=== PATIENT | female | born 1970 | race Caucasian/White ===

== ENCOUNTER 2017-07-16 16:39 | Emergency (ER) | payer OTHER ==
[2017-07-16] MEDS ORDERED: Albuterol/Ipratropium NEB.SOL* Albuterol 2.5 MG/Ipratropium 0.5 MG 3 ML INH ONE ×2 (16:41→17:15)
--- NOTE | 2017-07-16 17:16 | UC ---
Aldo Kumar Nikita, scribed for Joan Rojas MD on 07/16/17 at 1702 . Respiratory Complaint HPI - HPI Summary HPI Summary: This patient is a 47 year old F presenting to [facility] with a chief complaint of difficulty breathing, wheezing and cough since 3-4 days ago. The CC is described as not feeling well and worsened since onset. Pt with cough without sputum. Pt denies fevers, but reports chills . Pt with a h/o asthma. Pt states uses an inhaler rarely, hasn't used with this illness. chest tightness with coughing, losing her voice (since 2 days ago), overheating, chills, dry heaving, light-headedness, fatigue, and diarrhea. Patient is bipolar and reports she had 3 manic episodes within the last 8 weeks because stopped her meds. Pt states called mental health today to schedule an appointment to restart. Patient denies N/V, fever, ear pain, sinus pain, melena , dysuria, and vaginal discharge/itching. Pt denies SI/HI. Pt states lives with BF who is supportive Patients medication reviewed this visit. - History of Current Complaint Chief Complaint: UCRespiratory Stated Complaint: COUGH, AND CHEST CONGESTION Time Seen by Provider: 07/16/17 16:51 Hx Obtained From: Patient Hx Last Menstrual Period: 2 WEEKS AGO Onset/Duration: Sudden Onset, Lasting Days, Still Present Severity Initially: Moderate Severity Currently: Moderate Pain Intensity: 7 Pain Scale Used: 0-10 Numeric Character: Cough: Productive, Sputum Description: - white Aggravating Factors: Nothing Alleviating Factors: Nothing Associated Signs And Symptoms: Positive: Chills - Patient reports a productive cough with white sputum (now dry cough), chest tightness, losing her voice ( since 2 days ago), overheating, chills, dry heaving, light-headedness, fatigue, and diarrhea. Patient is bipolar and reports she had 3 manic episodes within the last 8 weeks. Patient denies N/V, fever, ear pain, sinus pain, melena, dysuria, and vaginal discharge/itching. - Allergies/Home Medications Allergies/Adverse Reactions: Allergies Allergy/AdvReac Type Severity Reaction Status Date / Time Bupropion [From Wellbutrin] Allergy Unknown Verified 07/16/17 16:47 Reaction Details Home Medications: Home Medications Ferrous Sulfate TAB* 325 mg PO DAILY 07/16/17 [History Confirmed 07/16/17] Levothyroxine TAB* [Synthroid TAB*] 100 mcg PO DAILY 07/16/17 [History Confirmed 07/16/17] Omeprazole CAP* [Prilosec CAP* 20 MG] 20 mg PO DAILY 07/16/17 [History Confirmed 07/16/17] PMH/Surg Hx/FS Hx/Imm Hx Endocrine History: Diabetes - pre-DM, Thyroid Disease Cardiovascular History: Other Other Cardiovascular History: anemia Respiratory History: Asthma GI/ History: Gastroesophageal Reflux Psychological History: Bipolar Disorder - Surgical History Surgical History: Yes Surgery Procedure, Year, and Place: TUBAL LIGATION, 3 C SECTIONS - Family History Known Family History: Positive: Cardiac Disease, Hypertension, Diabetes - Social History Occupation: Unemployed Lives: With Family - BF Alcohol Use: None Substance Use Type: None Smoking Status (MU): Never Smoked Tobacco Review of Systems Constitutional: Chills, Fatigue, Other - not feeling well, overheating; denies fever ENT: Other - losing her voice (since 2 days ago); denies ear pain, sinus pain Respiratory: Cough - productive with white sputum (now dry cough), Other - difficulty breathing Cardiovascular: Chest Pain - tightness Gastrointestinal: Diarrhea, Other - dry heaving; denies N/V, melena Genitourinary: Other - denies dysuria, vaginal discharge/itching Neurological: Other - light-headedness Psychological: Other - "manic episode" All Other Systems Reviewed And Are Negative: Yes Physical Exam Triage Information Reviewed: Yes Appearance: Well-Appearing, Well-Nourished, Other: - audble wheeze, short sentences at triage - markedly improved following first neb and full exam Pt with laryngitis Vital Signs: Initial Vital Signs Temp 96.1 F 07/16/17 16:43 Pulse 88 07/16/17 16:43 Resp 20 07/16/17 16:43 BP 119/74 07/16/17 16:43 Pulse Ox 97 07/16/17 16:43 Vital Signs Reviewed: Yes Eye Exam: Normal Eyes: Positive: Conjunctiva Clear ENT Exam: Normal ENT: Positive: Normal ENT inspection, Hearing grossly normal, Pharynx normal Dental Exam: Normal Neck exam: Normal Neck: Positive: Supple, Nontender, No Lymphadenopathy Respiratory Exam: Normal Respiratory: Positive: Chest non-tender, Wheezing, Other: - increased RR and short sentences initially with markedly improved following neb Cardiovascular: Positive: RRR, No Murmur, Pulses Normal Abdominal Exam: Normal Abdomen Description: Positive: Nontender, No Organomegaly, Soft Bowel Sounds: Positive: Present Musculoskeletal Exam: Normal Musculoskeletal: Positive: Strength Intact Neurological Exam: Normal Neurological: Positive: Alert Psychological Exam: Normal Psychological: Positive: Normal Response To Family Skin Exam: Normal UC Diagnostic Evaluation - Laboratory O2 Sat by Pulse Oximetry: 97 - Radiology Radiology Interpretation Completed By: Radiologist - No radiographic evidence of acute cardiopulmonary disease. [facility] physician has reviewed this radiology report and agrees. Re-Evaluation - Re-Evaluation First Eval Re-Evaluation Time: 17:45 Change: Improved Comment: Discussed with pt about results. Second Eval Re-Evaluation Time: 17:56 Change: Improved Comment: Pt's lungs are clear. She feels much better and is requesting a refill for albuterol. speaking full, easy sentences. Will start abx. mdi with spacer. follow-up appointment with pcp and mental health. return precautions. pt comfortable and in agreement [facility] pain Respiratory Course/Dx - Course Course Of Treatment: Pt with wheezing, sob with URI sx. Pt with h/o bipolar - currently not medicated with recent episode of estrella. Will avoid steroids if able. pt markedly improved following neb x 1. Will check cxr, flu and second neb. Pt in agreement with plan - Differential Dx/Diagnosis Provider Diagnoses: bronchitis Discharge - Discharge Plan Condition: Stable Disposition: HOME Prescriptions: Albuterol HFA INHALER* [Ventolin HFA Inhaler*] 1 puff INH Q4H #1 mdi Azithromycin TAB* [Zithromax TAB (Z-JUN) 250 mg #6 tabs] 2 tab PO .TODAY, THEN 1 DAILY #1 jun Spacer/Aerosol-Holding Chamber [Aerochamber Mini Aerosol] 1 mis XX Q4HR #1 mis Patient Education Materials: Acute Bronchitis (ED) Referrals: Chayito MCKAY,[place] [Primary Care Provider] - Additional Instructions: - Stay well hydrated. Drink plenty of non-alcoholic, non-caffinated beverages. - After you have been on antibiotics for 2 days - change your toothbrush and your pillowcase. These infections are spread by secretions - do NOT share eating or drinking utensils - clean items you share with other people such as cell phones, computer mouse, TV remote, computer tablets, etc - Use albuterol 2 puffs every 4 hours today and tomorrow, then every 4 hours as needed - Alternate ibuprofen (Advil, Motrin) 600mg and Tylenol every 3 hours for pain or fever. Take with food. Do NOT take for more than 4-5 days. - Call your doctor tomorrow to schedule a follow-up appointment early next week. - Call the mental health office tomorrow to schedule a follow-up as well The documentation as recorded by the Aldo turk Nikita accurately reflects the service I personally performed and the decisions made by me, Joan Rojas MD.
[2017-07-16 17:20] VITALS: BP 119/74
--- NOTE | 2017-07-16 17:32 | RAD ---
INDICATION: Shortness of breath and cough x3 days COMPARISON: None TECHNIQUE: PA and lateral views of the chest were obtained. FINDINGS: The heart and mediastinum are normal in size and contour. The lungs are grossly clear. There is no evidence of large pleural effusion. Visualized bones are normal for the patient's age. There is no radiographic evidence of free air beneath the diaphragm IMPRESSION: No radiographic evidence of acute cardiopulmonary disease.
== END 2017-07-16 18:07 | disposition home or self-care (01) ==
LOC: UCEAST 16:39
DX: J40 Bronchitis, not specified as acute or chronic (principal); J45.909 Unspecified asthma, uncomplicated; F31.9 Bipolar disorder, unspecified; E07.9 Disorder of thyroid, unspecified; K21.9 Gastro-esophageal reflux disease without esophagitis
CPT/HCPCS: 71020; 87502; 99213; A9270-GY; G0463